=== PATIENT | female | born 1995 | race Caucasian/White ===

== ENCOUNTER 2020-07-25 18:07 | Inpatient (IN) | payer OTHER ==
[~2020-07-25] VITALS: Ht 170.2 cm; Wt 67.4 kg
[2020-07-25] MEDS ORDERED: TUMS750C5 PO (18:26)
[2020-07-25] MEDS ORDERED: PRENTAB9 PO (18:26)
[2020-07-25] MEDS ORDERED: PENICILLIN G POTASSIUM IV 5 MU in D5W MINI-BAG PLUS 100 ML IV STA (20:11)
[2020-07-25] MEDS ORDERED: miSOPROStol 50 MCG 1/2 TAB (S0191) PO ONE (20:15)
[2020-07-25 20:19] LABS: HEMATOCRIT 33.5 % (36.0-47.0); MEAN CORPUSCULAR HEMOGLOBIN 28.5 pg (27.0-33.0); MEAN CORPUSCULAR HGB CONC 32.8 g/dl (32.0-36.5); MEAN CORPUSCULAR VOLUME 86.8 fl (80.0-96.0); PLATELET COUNT, AUTOMATED 199 10^3/uL (150-450); RED BLOOD COUNT 3.86 10^6/uL (4.00-5.40); WHITE BLOOD COUNT 8.4 10^3/uL (4.0-10.0)
--- NOTE | 2020-07-25 22:28 | HPEPDOC ---
Obstetrical History & Physical General Date of Admission Jul 25, 2020 at 18:07 History of Present Illness 25yo at 38w1d with IUGR in the 3%. EFW 2501. KRISTIAN 10cm. Patient presents for IOL Chief Complaint: Induction of labor Information Provided By: Patient Age: 25 : 2 Term: 1 Livin Care Care: Good Care Dating Final EDC: Aug 07, 2020 Final EDC by: LMP LMP: Jan 21, 2020 Past Medical History Past Obstetrical History : Past Obstetrical History: Multigravida Type of Delivery: Spontaneous Vaginal Del. 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 Past Medical History Surgical History: Denies/None Family History Significant Family History: No pertinent family hx Social History Marital Status: Family situation: Spouse/partner home Psychosocial History: No pertinent psych hx * Smoker: non-smoker Alcohol: Denies Drugs: denies Allergies Coded Allergies: No Known Allergies (Unverified , 07/25/20) Medications Scheduled No.137/Iron/Folic Acd ( Vitamin Tablet) 1 Each Tablet, 1 TAB PO DAILY Scheduled PRN Calcium Carbonate (Tums) 300 Mg Tab.chew, 2 TABS PO Q6HP PRN for INDIGESTION Physical Examination Physical Examination GENERAL: Alert and oriented times three. BREAST: . ABDOMEN: Gravid and non-tender to touch. FETUS: Is vertex (VTX) by sterile vaginal examination (SVE), fetus is vertex (VTX) by Brennen. HEART RATE: Regular rate and rhythm. LUNGS: Clear to auscultation (CTA). Laboratory Data 24H LABS Laboratory Tests 2 07/25/20 18:13: Serology Scanned Report Hepatitis B Testing 07/25/20 18:45: Nucleated Red Blood Cells % (auto) 0.0 CBC/BMP Laboratory Tests 07/25/20 18:45 Pertinent Laboratoy Data Blood Type: O- HIV: Negative Hepatitis B: Negative Rapid Plasma Reagin: Nonreactive Rubella: Immune Varicella: Nonreactive Chlamydia/Gonorrhea: Negative Group B Streptococcus: Positive Anatomy Ultrasound Placenta Location: Posterior Normal Anatomy: Yes Vaginal Examination Dilation: Fingertip Effacement: 30% Station: -3 Cervical Consistency: Soft Cervical Position: Posterior Presentation: Cephalic presentation Assessment Variability: Moderate Accelerations: Positive Tocometer Contractions: No Assessment/Plan Assessment 25yo at 38w1d with IUGR in the 3% Currently, reassuring status Plan Admit and orient. Flight Attendant Inflight Services and consent. Diet: reg Group B Streptococcus (GBS) + . Labs and intravenous (IV) per unit protocol. Counseled on Pitocin and induction of labor (IOL). Anticipate normal spontaneous delivery (). C-S as appropriate. MARTA MCKEON MD. Jul 25, 2020 22:27
[2020-07-26] MEDS ORDERED: PENICILLIN G POTASSIUM IV 2.5 MU in IV 1 EA IV SCH ×2 (00:15→12:00)
[2020-07-26] MEDS: miSOPROStol 50 MCG 1/2 TAB (S0191) PO SCH ×2 (01:17→05:28)
[2020-07-26 08:00] VITALS: BP_SYST 115; BP_DIAS 76; BP_DIAS 79
[2020-07-26] MEDS ORDERED: OXYTOCIN DRIP 30 UNITS in IV 1 EA IV SCH ×2 (08:00→18:24)
[2020-07-26] MEDS ORDERED: PENICILLIN G POTASSIUM IV 5 MU in D5W MINI-BAG PLUS 100 ML IV STA (08:00)
--- NOTE | 2020-07-26 08:09 | IPNPDOC ---
Obstetrical Progress Note Date of Service Jul 26, 2020 Subjective Patient is a at 38.2 wks for IOL for IUGR in the 3%tile. She has received 3 doses of cytotec and reports that she is starting to feel her contractions more frequently. She has supportive family at the bedside. Assessment Heart Rate (FHR): 130 Variability: Moderate Accelerations: Present Decelerations: None Heart Rate Tracing: Category I Tocometer Contractions: Yes Frequency: regular, every 2-5 min. Sterile Vaginal Examination Dilation: 3 cm (-4) Effacement (%): 60% Station: -3 Cervical Consistency: Soft Cervical Position: Posterior Postion/Presentation: Cephalic presentation Assessment and Plan Age: 25 : 2 Term: 1 Pre-term: 0 Abortions: 0 Livin EGA at Admission: 38 (+1) Weeks & Days 38.2 Status: Reassuring Group B Streptococcus: Positive Anticipate: Vaginal Delivery Additional Comments Consider start pitocin at 0930 if needed for irregular contractions or contractions greater than 4-5 minutes apart. Start antibiotics for GBS prophylaxis now Coordinate epidural upon patient's request BLESSING PARMAR CNM Jul 26, 2020 08:09
[2020-07-26] MEDS ORDERED: FENTANYL 2MCG/ML ROPIVACAINE 0.2% IN 0.9% NACL 100ML IVBAG As Ordered ONE (10:53)
--- NOTE | 2020-07-26 12:20 | IPNPDOC ---
Obstetrical Progress Note Date of Service Jul 26, 2020 Subjective 25 y/o at 38w2d being induced for IUGR. She just received her epidural and is comfortable. She is due for her 2nd dose of antibiotics at 1230. She had a cervical exam by the RN after placement of her epidural and her cervical exam remains 3-4/60/-3. Discussed options with patient and family for AROM vs pitocin. She desires to start pitocin at this time. Objective Vital Signs Date Time Temp Pulse Resp B/P (MAP) Pulse Ox O2 Delivery O2 Flow Rate FiO2 07/26/20 08:00 97.9 76 18 115/76 (89) Room Air Assessment Heart Rate (FHR): 125 Variability: Moderate Accelerations: Present Decelerations: None Heart Rate Tracing: Category I Tocometer Frequency: every 2-5 min. Assessment and Plan Age: 25 : 2 Term: 1 Pre-term: 0 Abortions: 0 Livin EGA at Admission: 38 (+1) Weeks & Days 38w2d Status: Reassuring Group B Streptococcus: Positive Anticipate: Vaginal Delivery Additional Comments Will start pitocin BLESSING PARMAR CNM Jul 26, 2020 12:20
[2020-07-26] MEDS ORDERED: NALOXONE INJ 0.4MG/1ML VIAL (J2310 PER 1MG) IV PRN (12:45)
[2020-07-26] MEDS ORDERED: FENTANYL/ROPIVACAINE/NACL BAG 100 ML EPIDURAL SCH (12:45)
[2020-07-26] MEDS ORDERED: diphenhydrAMINE 50MG/ML VIAL (J1200) IV PRN (12:45)
[2020-07-26] MEDS ORDERED: ePHEDrine SULFATE 25 MG/5 ML(5MG/ML) SYRINGE IV PRN (12:45)
[2020-07-26] MEDS ORDERED: LACTATED RINGER'S 1000 ML IV PRN (12:45)
[2020-07-26] MEDS ORDERED: ONDANSETRON 4MG/2ML VIAL IV PRN (12:45)
[2020-07-26] MEDS ORDERED: REFRIGERATOR IV KEYS XX PRN (12:45)
[2020-07-26] MEDS ORDERED: EPIDURAL/PCA KEYS XX PRN (12:45)
[2020-07-26] MEDS ORDERED: EPIDURAL COMMENT XX SCH (12:45)
[2020-07-26 12:51] VITALS: BP 109/58
[2020-07-26 12:56] VITALS: BP 109/67
[2020-07-26] MEDS: LR 1,000 ML IV SCH ×2 (14:43→14:46)
--- NOTE | 2020-07-26 16:08 | IPNPDOC ---
Obstetrical Progress Note Date of Service Jul 26, 2020 Subjective 25 y/o at 38.2 wks admitted for IOL for IUGR. She is comfortable with her epidural. Desires for AROM. Has supportive family at the bedside. Objective AROM for clear fluid Vital Signs Date Time Temp Pulse Resp B/P (MAP) Pulse Ox O2 Delivery O2 Flow Rate FiO2 07/26/20 12:56 97.5 67 18 109/67 (81) Room Air Assessment Heart Rate (FHR): 135 Variability: Moderate Accelerations: Present Decelerations: Variable Heart Rate Tracing: Category III Tocometer Contractions: Yes Frequency: regular, every 2-5 min. (every 3 min) Sterile Vaginal Examination Dilation: 6 cm Effacement (%): 80% Station: -2 Postion/Presentation: Cephalic presentation Assessment and Plan Age: 25 : 2 Term: 1 Pre-term: 0 Abortions: 0 Livin EGA at Admission: 38.1 Weeks & Days 38.2 WKS Status: Reassuring Group B Streptococcus: Positive Anticipate: Vaginal Delivery Additional Comments Updated Dr. Jin regarding patient's status and transferred care of patient to BLESSING Nails CNM Jul 26, 2020 16:07
[2020-07-26 18:01] LABS: CORD GAS ABE A -5.4; CORD GAS ABE V -5.5; CORD GAS HCO3 A 21.2 MEQ/L; CORD GAS HCO3 V 21.2 MEQ/L; CORD GAS O2 SAT A 46.2 %; CORD GAS O2 SAT V 40.8 %; CORD GAS PCO2 A 45.5 mmHg; CORD GAS PCO2 V 45.7 mmHg; CORD GAS PH A 7.286 UNITS; CORD GAS PH V 7.284 UNITS; CORD GAS PO2 A 21.2 mmHg; CORD GAS SBC A 18.9 MEQ/L; CORD GAS SBC V 18.8 MEQ/L; CORD GAS TCO2 A 22.6 MEQ/L; CORD GAS TCO2 V 22.6 MEQ/L
[2020-07-26] MEDS ORDERED: ANUSOL HC CREAM 30GM TOP PRN (18:30)
[2020-07-26] MEDS ORDERED: MEASLES,MUMPS,RUBELLA VACCINE INJ (MMR-II) (90707) SC SCH (18:30)
[2020-07-26] MEDS ORDERED: IBUPROFEN 800 MG TAB PO PRN (18:30)
[2020-07-26] MEDS ORDERED: METHYLERGONOVINE MALEATE 0.2 MG TAB PO PRN (18:30)
[2020-07-26] MEDS ORDERED: MOM 30ML SUSPENSION UDC PO PRN (18:30)
[2020-07-26] MEDS ORDERED: ACETAMINOPHEN 500 MG TAB PO PRN (18:30)
[2020-07-26] MEDS ORDERED: ACETAMINOPHEN TAB 650MG DOSE (2X325MG) PO PRN (18:30)
[2020-07-26] MEDS ORDERED: RHOGAM 300 MCG (1500 IU) INJ (J2790) IM SCH (18:30)
[2020-07-26] MEDS ORDERED: IBUPROFEN 600MG TAB PO PRN (18:30)
[2020-07-26] MEDS ORDERED: DIBUCAINE 1% OINTMENT 30GM TOP PRN (18:30)
[2020-07-26] MEDS ORDERED: DOCUSATE SODIUM 100 MG CAP PO PRN (18:30)
--- NOTE | 2020-07-26 18:38 | DNPDOC ---
[facility] Delivery Note Delivery Note DATE OF DELIVERY: 07/26/2020 TIME OF : 1734 GENDER: female. APGARS: 6 and 9. WEIGHT: 2600 grams or 5 pounds 12 ounces. LACERATIONS:. 1MLL ANESTHESIA: Epidural. COUNTS: 5 laparotomy sponges accounted for prior to after delivery and 1 sharp removed from delivery field. DELIVERY NOTE: On 07/26/20 at , Mrs Fischer a 25yo G2, now P2 had a spontaneous vaginal delivery of viable female , Apgars 6 and 9 and weight was 2600 g or 5 lbs. 12 oz. Head was delivered occiput anterior (OA), followed by delivery of the shoulders and corpus. Infant was handed to mom with a good cry. Cord was clamped times two and was cut by the father of baby under my direction. Placenta was then drained and delivered grossly intact. A premixed bag of 500 mL of normal saline with 30 units of Pitocin was then bolused along with uterine massage until the uterus was firm. On inspection there was a 1MLL repaired with 3-0 Vicryl. On reinspection,cervix, vagina, perineum was grossly intact and hemostatic. Mom and baby in recovery on stable condition. The couples decided to remain in daughter MARTA Kenney MD. Jul 26, 2020 18:38
[2020-07-26 20:45] VITALS: BP 110/77
[2020-07-27 06:00] VITALS: BP 110/70
--- NOTE | 2020-07-27 07:14 | IPNPDOC ---
Progress Note Date of Service: Jul 27, 2020 Day#: 1 Progress Note SUBJECT: Doing well without complaints. Ambulating, voiding and pain is well-c ontrolled. Reports minimal lochia. OBJECTIVE: VITAL SIGNS: Within normal limits, afebrile. Alert and oriented times three. Abdomen: Fundus firm at U-2. Soft, NTTP. Ext: neg calf tenderness. ASSESSMENT: day #1 status post normal spontaneous vaginal delivery. Recovering in stable condition. PLAN: 1. Continue routine care 2. Discharge plans for tomorrow VS, I&O, 24H, Fishbone Vital Signs/I&O Vital Signs Date Time Temp Pulse Resp B/P (MAP) Pulse Ox O2 Delivery O2 Flow Rate FiO2 07/27/20 06:00 98.5 75 18 110/70 (83) 07/26/20 20:45 Room Air I&O- Last 24 Hours up to 6 AM 07/27/20 06:00 Intake Total 4472.3 ml Output Total 2500 ml Balance 1972.3 ml Laboratory Data 24H LABS Laboratory Tests 2 07/26/20 17:48: Cord Arterial Blood pH 7.286, Cord Arterial Blood PCO2 45.5, Cord Arterial Blood PO2 21.2, Cord Arterial Blood HCO3 21.2, Cord Arterial Blood Total CO2 22.6, Cord Arterial Blood Base Excess -5.4, Cord Arterial Base Excess (Standard 18.9, Cord Arterial Bld Oxygen Saturation 46.2, Cord Venous Blood pH 7.284, Cord Venous Blood PCO2 45.7, Cord Venous Blood PO2 20.0, Cord Venous Blood HCO3 21.2, Cord Venous Blood Total CO2 22.6, Cord Venous Base Excess (Actual) -5.5, Cord Venous Base Excess (Standard) 18.8, Cord Venous Blood Oxygen Saturation 40.8 MARTA MCKEON MD. Jul 27, 2020 07:14
[2020-07-27] MEDS: PRENATAL VITAMINS CHEWABLE TABLET PO SCH (08:27)
[2020-07-27 18:00] VITALS: BP 107/58
[2020-07-28 05:24] VITALS: BP 106/62
[2020-07-28] MEDS ORDERED: DOCU100C16 PO (07:00)
[2020-07-28] MEDS ORDERED: DIBU10OI TOP (07:00)
[2020-07-28] MEDS ORDERED: IBUP80TA PO (07:00)
[2020-07-28] MEDS: PRENATAL VITAMINS CHEWABLE TABLET PO SCH (08:05)
--- NOTE | 2020-08-15 11:42 | DSES ---
DATE OF ADMISSION: 07/25/2020 DATE OF DISCHARGE: 07/28/2020 This lady is a 25-year-old, 2, now para 2, admitted for induction of labor because of IUGR. She had a spontaneous vaginal delivery of a live female , weighing 5 pounds, 12 ounces (2600 grams) with Apgars of 6 and 8 at 1 and 5 minutes respectively. Arterial pH was 7.28, base excess -5.4, venous pH 7.28, basic excess -5.5. Her admitting hemoglobin was 11.0, hematocrit 33.5 and platelets 199,000. Her discharge blood pressure 106/62, respirations 20, pulse 73, temperature 97.4. We discussed phlebitis, cystitis, mastitis, metritis, and cellulitis, diet, exercise, pain management, and perineal, breast, and wound care. The rest of the examination unremarkable. Normocephalic, atraumatic. Neck has full range of motion. Pupils equal and reactive to light. Distal pulses are symmetric. No evidence of DVT, PE or superficial phlebitis. Chest is clear bilaterally to bases. No wheezes or rhonchi. No CVA tenderness. Abdomen is soft. Four-quadrant bowel sounds are noted. Uterus two below. Perineum is intact. No rashes, lesions or pruritis, arthralgias or myalgias. No complaint of joint pain. No complaint of cough, wheeze, shortness of breath or dyspnea on exertion. No urgency or frequency. No nausea, vomiting, diarrhea or constipation. IN SUMMARY: Patient has medications dispensed at [place]. She is to have a six week checkup at [facility]. All questions were answered; 20 minute discussion. Patient will be discharged and baby will be sent to registered dietitian at [facility]. VARGAS
== END 2020-07-28 10:45 | disposition home or self-care (01) | DRG 807 ==
LOC: M LDI 18:07 → M OBS 07-26 20:35
PROVIDERS: ADMIT Obstetrics & Gynecology; ATTEND Obstetrics & Gynecology
PROC: 3E0P7GC Introduction of Other Therapeutic Substance into Female Reproductive, Via Natural or Artificial Opening (ICD-10-PCS; 2020-07-25)
PROC: 10E0XZZ Delivery of Products of Conception, External Approach (ICD-10-PCS; principal; 2020-07-26)
PROC: 10907ZC Drainage of Amniotic Fluid, Therapeutic from Products of Conception, Via Natural or Artificial Opening (ICD-10-PCS; 2020-07-26)
PROC: 0HQ9XZZ Repair Perineum Skin, External Approach (ICD-10-PCS; 2020-07-26)
DX: O36.5930 Maternal care for other known or suspected poor fetal growth, third trimester, not applicable or unspecified (principal); Z37.0 Single live birth; Z3A.38 38 weeks gestation of pregnancy; O99.824 Streptococcus B carrier state complicating childbirth; O70.0 First degree perineal laceration during delivery

== ENCOUNTER → 2020-07-25 | Outpatient (CLI) | payer OTHER ==
[~2020-07-25] MED LIST: DIBU10OI TOP; DOCU100C16 PO; IBUP80TA PO; PRENTAB9 PO; TUMS750C5 PO
--- NOTE | 2020-07-25 14:29 | REPVR ---
PROCEDURE INFORMATION: Exam: US After First Trimester, Transabdominal Exam date and time: 07/25/2020 2:08 PM Age: 25 years old Clinical indication: Lmp or gestational age (in weeks): 38 weeks; Antepartum complications; Weight - insufficient gain; ; Additional info: Size less than date on delivery TECHNIQUE: Imaging protocol: Real-time transabdominal obstetrical ultrasound of the maternal pelvis and a second or third trimester with image documentation. COMPARISON: No relevant prior studies available. FINDINGS: Gestation: Single living intrauterine fetus. heart rate: Heart rate: 122 beats per minute. Presentation: Vertex position. Placenta: Fundal posterior left grade 1 -2 placenta, no previa. Amniotic fluid: Amniotic fluid is normal for gestational age. KRISTIAN = 10.6 cm. ANATOMY: Midline falx: Normal. Cerebellum: Unremarkable. Cerebral ventricles: Lateral ventricular width: 2.9 mm. Cisterna magna: Not image. Septum pellucidum: Unremarkable as visualized. Upper lip and nose: Normal nose/lips. Heart four-chamber view, heart size and position: 4 chambered cardiac anatomy, normal cardiac left ventricular outflow tract. Normal cardiac size and position. kidneys: Normal appearance of the kidneys. stomach: Fluid is present in the stomach. urinary bladder: Fluid is present in the urinary bladder. Spine: Normal appearance of the spine. Umbilical cord insertion site into the abdomen: Umbilical cord and insertion: Normal umbilical cord and insertion. S/D 2.40. Umbilical cord vessel number: Unremarkable 3 vessel umbilical cord. Arms and hands: Normal. Humeral length 34 weeks 2 days. Legs and feet: Normal. external genitalia: Not imaged BIOMETRY: Gestational age (AUA): 34 weeks 3 days; compare LMP 38 weeks 1 day. Estimated due date (AUA): ELIEZER 09/02/2020; compare LMP ELIEZER 08/07/2020. Estimated weight: 2501 g +/- 370 g; 3rd percentile ([place]). Biparietal diameter: 34 weeks 5 days. Head circumference: 34 weeks 1 day. Abdominal circumference: 35 weeks 2 days. Femur length: 34 weeks 0 days. MATERNAL ANATOMY: Uterus: Unremarkable. Cervix: The cervical length is 3.09 cm. Closed. Right adnexa: Not imaged. Left adnexa: Not imaged. IMPRESSION: Single living intrauterine fetus. Estimated weight at the 3rd percentile for the given clinical age. Clinical review of the dating recommended. Follow-up recommended to exclude intrauterine growth retardation. facial profile, right ventricular outflow tract not imaged. Limited follow-up may be helpful. Electronically signed by: Orlando Chapman On 07/25/2020 14:29:06 PM
== END ==
LOC: M RAD 13:10
PROVIDERS: ATTEND Registered Nurse
DX: O26.843 Uterine size-date discrepancy, third trimester (principal)

== ENCOUNTER 2021-10-01 12:39 | Emergency (ER) | payer OTHER ==
[~2021-10-01] VITALS: Ht 170.2 cm; Wt 59.1 kg
[~2021-10-01 12:39] MED LIST changes: -DIBU10OI TOP; +DIBU28OI2 TOP
[2021-10-01 12:41] VITALS: BP 131/78
--- OUTSIDE RECORDS SUMMARY | 2021-10-01 12:53 | CCD ---
Author Author [facility] Organization [facility] Address Unknown Phone Unavailable Care Team Providers Care Digital Developer Name Role Phone NO, PCP Unavailable Unavailable Marco MACK MD Unavailable Unavailable Marco MACK MD Unavailable Unavailable Marco MACK MD Unavailable Unavailable Marco MACK MD Unavailable Unavailable Marco MACK MD Unavailable Unavailable Marco MACK MD Unavailable Unavailable Marco MACK MD Unavailable Unavailable Marco MACK MD Unavailable Unavailable Marco MACK MD Unavailable Unavailable Marco MACK MD Unavailable Unavailable Marco MACK MD Unavailable Unavailable Marco MACK MD Unavailable Unavailable Marco MACK MD Unavailable Unavailable Marco MACK MD Unavailable Unavailable Marco MACK MD Unavailable Unavailable Marco MACK MD Unavailable Unavailable Marco MACK MD Unavailable Unavailable Marco MACK MD Unavailable Unavailable Marco MACK MD Unavailable Unavailable Marco MACK MD Unavailable Unavailable Marco MACK MD Unavailable Unavailable Marco MACK MD Unavailable Unavailable Marco MACK MD Unavailable Unavailable Marco MACK MD Unavailable Unavailable Marco MACK MD Unavailable Unavailable Marco MACK MD Unavailable Unavailable Marco MACK MD Unavailable Unavailable Marco MACK MD Unavailable Unavailable aMrco MACK MD Unavailable Unavailable Marco MACK MD Unavailable Unavailable Marco MACK MD Unavailable Unavailable Marco MACK MD Unavailable Unavailable Re-disclosure Warning The records that you are about to access may contain information from federally-assisted alcohol or drug abuse programs. If such information is present, then the following federally mandated warning applies: This information has been disclosed to you from records protected by federal confidentiality rules (42 CFR part 2). The federal rules prohibit you from making any further disclosure of this information unless further disclosure is expressly permitted by the written consent of the person to whom it pertains or as otherwise permitted by 42 CFR part 2. A general authorization for the release of medical or other information is NOT sufficient for this purpose. The Federal rules restrict any use of the information to criminally investigate or prosecute any alcohol or drug abuse patient.The records that you are about to access may contain highly sensitive health information, the redisclosure of which is protected by Article 27-F of the [facility] Public Health law. If you continue you may have access to information: Regarding HIV / AIDS; Provided by facilities licensed or operated by the [facility] Office of Mental Health; or Provided by the [facility] Office for People With Developmental Disabilities. If such information is present, then the following [facility] mandated warning applies: This information has been disclosed to you from confidential records which are protected by state law. State law prohibits you from making any further disclosure of this information without the specific written consent of the person to whom it pertains, or as otherwise permitted by law. Any unauthorized further disclosure in violation of state law may result in a fine or half-way sentence or both. A general authorization for the release of medical or other information is NOT sufficient authorization for further disc losure. Allergies and Adverse Reactions Type Description Substance Reaction Status Data Source(s ) No Known Drug Allergies No Known Drug Allergies [facility] No Known Food Allergies No Known Food Allergies [facility] Propensity to adverse reactions DUST; CATS DUST; CATS [facility] Family History Family Member Name Family Member Gender Family Member Status Date o f Status Description Data Source(s) Unknown Unknown Problem [facility] ([facility]) Encounters Encounter Providers Location Date Indications Data Source(s ) Outpatient Attender: HONG MACK MDConsultant: PCP NO 05/29/2021 06:30:00 AM EDT - 05/29/2021 09:12:00 AM EDT [facility] Patient discharged. Outpatient Attender: HONG MACK MDConsultant: PCP NO 05/24/2021 07:03:07 AM EDT - 05/25/2021 08:40:00 AM EDT [facility] Patient discharged. Outpatient Attender: HONG MACK MD Family Practice 05/17/2021 0 3:15:00 PM EDT [facility] ([facility]) Outpatient Attender: HONG MACK MD 2020 03:11:00 PM EDT - 05/17/2021 03:11:00 PM EDT [facility] Medications No Information Insurance Providers Payer name Policy type / Coverage type Policy ID Covered constitution party ID Covered constitution party's relationship to [place] Policy [place] Plan Information Medicaid S [id number] S [id number] Managed Care [facility] Community Plan P [id number] S [id number] Managed Care [facility] Community Plan P [id number] S [id number] Medicaid S [id number] S [id number] [employer] [place] 020/520 [id number] [employer] BCBS B [id number] S W [id number] PENDING GOVT INSURANCE [id number] SP [id number] [employer] [place] 020/520 [id number] SP [id number] FORMERLY [facility] COMMUNITY PLAN [facility] [id number] SP [id number] [facility] Health Maintenance Organization (HMO) [id number] Self [id number] Managed Care - [facility] Community Plan P [id number] S [id number] Self Pay P UNAVAILABLE S [place] BLE MEDICAID [id number] SP [id number] [facility] [place] [id number] 01 [id number] FORMERLY [facility] COMMUNITY PLAN [facility] [id number] SP [id number] [facility] [place] [id number] 01 [id number] [facility] [id number] 01 [id number] [facility] [id number] Problems, Conditions, and Diagnoses Code Display Name Description Problem Type Effective Dates Data Source(s) Z3046 Encounter for surveillance of implantabl e subdermal contraceptive Encounter for surveillance of implantable subdermal contraceptive Diagnosis 05/29/2021 06:30:00 AM EDT [facility] [id number] Encounter for other preprocedural examin ation Encounter for other preprocedural examination Diagnosis 05/25/2021 08:07:00 AM EDT [facility] [id number] Residual foreign body in soft tissue Residual fo reign body in soft tissue Diagnosis 05/17/2021 03:11:00 PM EDT [facility] Surgeries/Procedures Procedure Description Date Indications Data Source(s) OFFICE OUTPATIENT NEW 20 MINUTES 05/17/2021 12:00:00 A M EDT [facility] ([facility]) Results ID Date Data Source [id number] 05/30/2021 07:58:00 AM EDT [facility] [address] [place] [address] PHONE: [phone] FAX: [phone] Name .................. : NICANOR Iverson Acct Number.................. : [id number] ROOM. ................. : [facility] Number ................... : [id number] Stay type ............. : O/P Discharge Date......... ... : 05/29/21 Admit Date ....... .. : 05/29/21 Admit Phys .................... : [email or web address] Date of ....... : 1995 Family Phys ................... : NO PCP Phone .................. : [phone] Age ................................ : 26 Film# .................. .:[id number] Sex ................................. : F Unsigned transcriptions are preliminary reports and do not represent a medical or legal document US EXT-NON VASCULAR LT COMPL [id number] COMPLETE:05/29/21 08:07 [facility] [id number] Reason for Exam: to locate nexplanon SONOGRAM OF THE SOFT TISSUES OF THE LEFT ARM, 05/29/21: FINDINGS: Sonogram of the soft tissues of the left arm in area noted by the patient. It does demonstrate a linear echogenic focus, likely related to the reported Nexplanon implants. IMPRESSION: Findings suggestive of a linear foreign body in the left arm apparently related to the Nexplanon implants. Correlate clinically and with physical exam. Electronically Reviewed and Signed By Alen Allen MD , 05/30/21 07:58, [facility] Transcribe Initials: SSR, Transcribe Date: 05/29/21 13:03, Dictation Date: Copy for: MARTINA Lara via fax Copy for: 710 MED REC DISCHARGED Page 1 of 1 Name Value Range Interpretation Code Description Data Julia rce(s) Supporting Document(s) ID Date Data Source [id number] 05/24/2021 11:00:00 AM EDT [facility] Name Value Range Interpretation Code Description Data Julia rce(s) Supporting Document(s) SARS coronavirus 2 RNA Not Detected [facility] This lab was ordered by [facility] and reported by [facility]. Procedure Social History No Information Vital Signs ID Date Data Source UNK Name Value Range Interpretation Code Description Data Source(s) Heart rate 94 /min 94 /min [facility] ([facility]) Body temperature 98.6 [degF] 98.6 [degF] [facility] Respiratory rate 18 /min 18 /min [facility] ( [facility]) Oxygen saturation in Arterial blood by Pulse oximetry 99 % 99 % [facility] ([facility]) Body weight 129.00 [lb_av] 129.00 [lb_av] [facility] ([facility]) Body weight 58.514 kg 58.514 kg [facility]) Body height 67 [in_i] 67 [in_i] [facility]) 5'7" Body mass index (BMI) [Ratio] 20.2 kg/m2 20.2 k g/m2 [facility] ([facility]) Body surface area Derived from formula 1.68 m2 1.68 m2 [facility] ([facility]) Systolic blood pressure 104 mm[Hg] 104 mm[Hg] [facility] Diastolic blood pressure 78 mm[Hg] 78 mm[Hg] [facility]) ID Date Data Source [id number] 06/04/2021 12:55:41 PM EDT [facility] Name Value Range Interpretation Code Description Data Source(s) WEIGHT RECORDED 127.00 pounds 127.00 pounds [facility] Height 66 Inches 066 Inches [facility]
[2021-10-01] MEDS ORDERED: IBUP200C28 PO (12:56)
--- OUTSIDE RECORDS SUMMARY | 2021-10-01 16:12 | CCD ---
Author Author [facility] Organization [facility] Address Unknown Phone Unavailable Care Team Providers Care [employer] Name Role Phone NO, PCP Unavailable Unavailable [...] is protected by Article 27-F of the [facility] Public Health law. If you continue you may have access to information: Regarding HIV / AIDS; Provided by facilities licensed or operated by the [facility] Office of Mental Health; or Provided by the [facility] Office for People With Developmental Disabilities. If such information is present, then the following [facility] mandated warning applies: This information has been [...] law may result in a fine or shelter sentence or both. A general authorization for the release of medical or other information is NOT sufficient authorization for further disc losure. Allergies and Adverse Reactions Type Description Substance Reaction Status Data Source(s ) No Known Drug Allergies No Known Drug Allergies [facility] No Known Food Allergies No Known Food Allergies [facility] Propensity to adverse reactions DUST; CATS DUST; CATS [facility] Family History Family Member Name Family Member Gender Family Member Status Date o f Status Description Data Source(s) Unknown Unknown Problem [facility] ([facility]) Encounters Encounter Providers Location Date Indications Data Source(s ) Outpatient Attender: HONG MACK MDConsultant: PCP NO 05/29/2021 06:30:00 AM EDT - 05/29/2021 09:12:00 AM EDT [facility] Patient discharged. Outpatient Attender: HONG MACK MDConsultant: PCP NO 05/24/2021 07:03:07 AM EDT - 05/25/2021 08:40:00 AM EDT [facility] Patient discharged. Outpatient Attender: HONG MACK MD Family Practice 05/17/2021 0 3:15:00 PM EDT [facility] ([facility]) Outpatient Attender: HONG MACK MD 2020 03:11:00 PM EDT - 05/17/2021 03:11:00 PM EDT [facility] Medications No Information Insurance Providers Payer name Policy type / Coverage type Policy ID Covered green party ID Covered green party's relationship to [place] Policy [place] Plan Information Medicaid S [id number] S [id number] Managed Care [facility] Community Plan P [id number] S [id number] Managed Care [facility] Community Plan P [id number] S [id number] Medicaid S [id number] S [id number] [place] 020/520 [id number] [employer] BCBS B [id number] S W [id number] PENDING [employer] INSURANCE [id number] SP [id number] [employer] [place] 020/520 [id number] SP [id number] [facility] [id number] SP [id number] [facility] Health Maintenance Organization (HMO) [id number] Self [id number] Managed Care - [facility] Community Plan P [id number] S [id number] Self Pay P UNAVAILABLE S UNA[place]ILA BLE MEDICAID [id number] SP [id number] [facility] [employer] [place] [id number] 01 [id number] [facility] COMMUN[facility] PLAN [facility] [id number] SP [id number] [facility] [place] [id number] [id number] [facility] [id number] 01 [id number] [facility] [id number] Problems, Conditions, and Diagnoses Code Display Name Description Problem Type Effective Dates Data Source(s) Z3046 Encounter for surveillance of implantabl e subdermal contraceptive Encounter for surveillance of implantable subdermal contraceptive Diagnosis 05/29/2021 06:30:00 AM EDT [facility] [id number] Encounter for other preprocedural examin ation Encounter for other preprocedural examination Diagnosis 05/25/2021 08:07:00 AM EDT [facility] M795 Residual foreign body in soft tissue Residual fo reign body in soft tissue Diagnosis 05/17/2021 03:11:00 PM EDT [facility] Surgeries/Procedures Procedure Description Date Indications Data Source(s) OFFICE OUTPATIENT NEW 20 MINUTES 05/17/2021 12:00:00 A M EDT [facility] ([facility]) Results ID Date Data Source [id number] 05/30/2021 07:58:00 AM EDT [facility] [address] [place] [address] PHONE: [phone] FAX: [phone] Name .................. : NICANOR Iverson Acct Number.................. : [id number] ROOM. ................. : [facility] Number ................... : [id number] Stay type ............. : O/P Discharge Date......... ... : 05/29/21 Admit Date ....... .. : 05/29/21 Admit Phys .................... : [email or web address] Date of ....... : 1995 Family Phys ................... : NO PCP Phone .................. : [phone] Age ................................ : 26 Film# .................. .:[id number] Sex ................................. : F Unsigned transcriptions are preliminary reports and do not represent a medical or legal document US EXT-NON VASCULAR LT COMPL [id number] COMPLETE:05/29/21 08:07 [facility] [id number] Reason for Exam: to locate nexplanon SONOGRAM [...] By Alen Allen MD , 05/30/21 07:58, [facility] Transcribe Initials: SSR, Transcribe Date: 05/29/21 13:03, Dictation Date: Copy for: MARTINA Lara via fax Copy for: 710 MED REC DISCHARGED Page 1 of 1 Name Value Range Interpretation Code Description Data Julia rce(s) Supporting Document(s) ID Date Data Source [id number] 05/24/2021 11:00:00 AM EDT [facility] Name Value Range Interpretation Code Description Data Julia rce(s) Supporting Document(s) SARS coronavirus 2 RNA Not Detected [facility] This lab was ordered by [facility] and reported by [facility]. Procedure Social History No Information Vital Signs ID Date Data Source UNK Name Value Range Interpretation Code Description Data Source(s) Heart rate 94 /min 94 /min [facility] ([facility]) Body temperature 98.6 [degF] 98.6 [degF] [facility] ([facility]) Respiratory rate 18 /min 18 /min [facility] ( [facility]) Oxygen saturation in Arterial blood by Pulse oximetry 99 % 99 % [facility] ([facility]) Body weight 129.00 [lb_av] 129.00 [lb_av] [facility] ([facility]) Body weight 58.514 kg 58.514 kg [facility] ([facility]) Body height 67 [in_i] 67 [in_i] [facility] ([facility]) 5'7" Body mass index (BMI) [Ratio] 20.2 kg/m2 20.2 k g/m2 [facility] ([facility]) Body surface area Derived from formula 1.68 m2 1.68 m2 [facility] ([facility]) Systolic blood pressure 104 mm[Hg] 104 mm[Hg] [facility] Diastolic blood pressure 78 mm[Hg] 78 mm[Hg] [facility] ([facility]) ID Date Data Source [id number] 06/04/2021 12:55:41 PM EDT [facility] Name Value Range Interpretation Code Description Data Source(s) WEIGHT RECORDED 127.00 pounds 127.00 pounds [facility] Height 66 Inches 066 Inches [facility]
[2021-10-01] MEDS ORDERED: KETOROLAC TROMETHAMINE 10 MG TAB PO ONE (16:40)
[2021-10-01] MEDS ORDERED: diazePAM 5MG TABLET PO ONE (16:40)
--- NOTE | 2021-10-01 17:04 | REP ---
INDICATION: pain/dec rom COMPARISON: None. TECHNIQUE: Axial noncontrast images from the skull base to the thoracic inlet with coronal and sagittal re-formations This CT examination was performed using the following dose reduction techniques: Automated exposure control, adjustment of mA and/or kv according to the patient's size, and use of iterative reconstruction technique. FINDINGS: Alignment is relatively maintained. Vertebral bodies including posterior elements and spinous processes are intact. There is no evidence for acute fracture/compression injury or subluxation. Neural foramina appear patent. Spinal canal appears normal. No overt degenerative changes are appreciated. Paravertebral soft tissues are normal. IMPRESSION: Normal noncontrast cervical spine CT. No evidence for acute pathology or trauma/injury. <Electronically signed by Vlad Cruz > 10/01/21 0686
[2021-10-01] MEDS ORDERED: METH-1165 PO (17:37)
[2021-10-01] MEDS ORDERED: KETO10TAB PO (17:37)
== END 2021-10-01 17:52 | disposition home or self-care (01) ==
LOC: M ED 12:39
DX: M62.838 Other muscle spasm (principal); Z86.16 Personal history of COVID-19